=== PATIENT | male | born 1955 | race Caucasian/White ===

== ENCOUNTER 2017-10-27 10:07 | Emergency (ER) | payer OTHER ==
[~2017-10-27] VITALS: Ht 167.6 cm; Wt 93.0 kg
[~2017-10-27 10:07] MED LIST: CELEXA20 MG PO; GLUCOPHAGE XR500 MG PO; HYDROCHLOROTH12.5 M1 PO; LOVASTATIN 20 M20 MG PO; METFORMIN HCL500 MG PO; NORCO 5-325 TA1 EACH PO; TENORMIN25 MG PO
[2017-10-27] MEDS ORDERED: KEFLEX500 M1 PO (11:45)
[2017-10-27] MEDS ORDERED: NORCO 5-325 TA1 EAC1 PO (11:48)
[2017-10-27 11:54] VITALS: BP 154/90
== END 2017-10-27 11:56 | disposition home or self-care (01) ==
LOC: M.ERS 10:07
DX: S61.210A Laceration without foreign body of right index finger without damage to nail, initial encounter (principal); S61.212A Laceration without foreign body of right middle finger without damage to nail, initial encounter; S61.214A Laceration without foreign body of right ring finger without damage to nail, initial encounter; I10 Essential (primary) hypertension; E11.9 Type 2 diabetes mellitus without complications; F17.210 Nicotine dependence, cigarettes, uncomplicated; Z88.1 Allergy status to other antibiotic agents; X58.XXXA Exposure to other specified factors, initial encounter; Y93.89 Activity, other specified; Y92.89 Other specified places as the place of occurrence of the external cause; Y99.8 Other external cause status

== ENCOUNTER 2019-09-01 12:30 | Emergency (ER) | payer MEDICARE ==
[~2019-09-01] VITALS: Ht 167.6 cm; Wt 92.1 kg
[~2019-09-01 12:30] MED LIST changes: +KEFLEX500 M1 PO; +NORCO 5-325 TA1 EAC1 PO
[2019-09-01] MEDS ORDERED: FLOMAX0.4 MG PO (12:46)
[2019-09-01] MEDS ORDERED: MOBIC7.5 MG PO (14:25)
[2019-09-01 15:07] VITALS: BP 126/89
== END 2019-09-01 15:09 | disposition home or self-care (01) ==
LOC: M.ERS 12:30
DX: S40.012A Contusion of left shoulder, initial encounter (principal); S50.02XA Contusion of left elbow, initial encounter; I10 Essential (primary) hypertension; E11.9 Type 2 diabetes mellitus without complications; F32.9 Major depressive disorder, single episode, unspecified; E78.5 Hyperlipidemia, unspecified; F17.210 Nicotine dependence, cigarettes, uncomplicated; Z88.6 Allergy status to analgesic agent; W11.XXXA Fall on and from ladder, initial encounter; Y92.89 Other specified places as the place of occurrence of the external cause; Y93.89 Activity, other specified; Y99.8 Other external cause status

== ENCOUNTER 2020-06-24 22:50 | Inpatient (IN) | payer MEDICARE ==
[~2020-06-24] VITALS: Ht 188 cm; Wt 98.2 kg
[~2020-06-24 22:50] MED LIST changes: +FLOMAX0.4 MG PO; +MOBIC7.5 MG PO
[2020-06-24 22:59] VITALS: BP 96/51
[2020-06-24] MEDS ORDERED: ATENOLOL 100MG100 MG PO (23:25)
[2020-06-24] MEDS ORDERED: NORVASC 2.5 MG2.5 M1 PO (23:26)
[2020-06-24] MEDS ORDERED: LOSARTAN PO (23:27)
[2020-06-24] MEDS ORDERED: CHILDREN'S ASPI81 M1 PO (23:29)
[2020-06-24] MEDS ORDERED: MECLIZINE HCL25 M1 PO (23:29)
[2020-06-24 23:39] LABS: ABSOLUTE BASOPHILS 0.1 thou/uL (0.0-0.2); ABSOLUTE EOSINOPHILS 0.4 thou/uL (0.0-0.7); ABSOLUTE LYMPHOCYTES 3.8 thou/uL (0.8-5.3); ABSOLUTE NEUTROPHILS 7.5 thou/uL (1.6-8.1); EOSINOPHILS 3.2 %; HEMATOCRIT 44.1 % (42.0-52.0); HEMOGLOBIN 14.5 gm/dL (14.0-18.0); LYMPHOCYTES 29.7 %; MCH 29.2 pg (26.0-34.0); MCHC 32.8 g/dL (28.0-37.0); MCV 88.8 fL (80.0-100.0); MONOCYTES 7.9 %; MPV 9.3 fl. (7.2-11.1); NUCLEATED RBCS 0 /100WBC; PLATELET COUNT* 200 thou/uL (150-400); POLYS 58.2 %; RBC 4.96 mil/uL (4.50-6.00); RDW-CV 14.7 % (10.5-14.5); WBC 12.8 thou/uL (4.0-11.0)
[2020-06-24 23:44] LABS: PROTIME 11.1 Seconds (9.20-11.50)
[2020-06-24 23:55] LABS: ALBUMIN 3.7 g/dL (3.4-5.0); CREATININE 1.9 mg/dL (0.6-1.3); MAGNESIUM 1.9 mg/dL (1.8-2.4); POTASSIUM 3.2 mmol/L (3.5-5.1); TOTAL BILIRUBIN 0.2 mg/dL (<0.1-1.0); TOTAL PROTEIN 7.5 g/dL (6.4-8.2)
[2020-06-25] VITALS (21 sets, daily range): BP systolic 97–197; BP diastolic 45–120
[2020-06-25 00:49] LABS: PO2 100.3 mmHg (75.0-100.0)
[2020-06-25 00:54] LABS: PCO2 58.4 mmHg (35.0-45.0)
[2020-06-25 02:10] LABS: CSF GLUCOSE 94 mg/dl (40-70); CSF PROTEIN 79.5 mg/dl (15-45)
[2020-06-25 02:46] LABS: CSF CLARITY CLEAR; CSF COLOR COLORLESS; VOLUME 6.5 ml
[2020-06-25 02:47] LABS: CSF RBC 16 /mm3; CSF WBC 4 /mm3 (0-10)
[2020-06-25 02:51] LABS: CSF CLARITY CLEAR; CSF COLOR COLORLESS; CSF RBC 2 /mm3; CSF WBC 1 /mm3 (0-10); VOLUME 6.5 ml
[2020-06-25 03:44] LABS: PCO2 53.9 mmHg (35.0-45.0); PO2 229.6 mmHg (75.0-100.0); pH 7.147 (7.340-7.450)
[2020-06-25 09:32] LABS: BE -5.4 mmol/L (-2 to +3)
[2020-06-25 09:34] LABS: PCO2 50.6 mmHg (35.0-45.0); pH 7.257 (7.340-7.450)
[2020-06-25 09:42] LABS: URINE BILIRUBIN NEGATIVE (Negative); URINE BLOOD NEGATIVE (Negative); URINE CLARITY CLEAR; URINE COLOR YELLOW; URINE GLUCOSE-RANDOM TRACE (Negative); URINE KETONES NEGATIVE (Negative); URINE LEUKOCYTES-REFLEX NEGATIVE (Negative); URINE NITRITE-REFLEX NEGATIVE (Negative); URINE PROTEIN NEGATIVE (Negative); URINE SPECIFIC GRAVITY 1.025 (1.005-1.030); URINE UROBILINOGEN 0.2 E.U./dl (0.2-1.0)
[2020-06-25 09:50] LABS: AMP/METHAMP Negative (Negative); BARBITURATES Negative (Negative); BENZODIAZEPINES Negative (Negative); COCAINE Negative (Negative); METHADONE Negative (Negative); OPIATES Negative (Negative); PCP Negative (Negative); THC Negative (Negative)
[2020-06-26] VITALS (19 sets, daily range): BP systolic 107–159; BP diastolic 61–82
[2020-06-26 04:16] LABS: HEMATOCRIT 37.2 % (42.0-52.0); MCH 29.3 pg (26.0-34.0); MCHC 33.4 g/dL (28.0-37.0); MPV 9.2 fl. (7.2-11.1); RBC 4.23 mil/uL (4.50-6.00); WBC 9.3 thou/uL (4.0-11.0)
[2020-06-26 04:23] LABS: HEMOGLOBIN 12.4 gm/dL (14.0-18.0)
[2020-06-26 04:55] LABS: CREATININE 1.1 mg/dL (0.6-1.3); MAGNESIUM 1.9 mg/dL (1.8-2.4); POTASSIUM 4.2 mmol/L (3.5-5.1); TOTAL BILIRUBIN 0.4 mg/dL (<0.1-1.0); TOTAL PROTEIN 6.1 g/dL (6.4-8.2)
[2020-06-26 05:36] LABS: BE -0.8 mmol/L (-2 to +3); PO2 111.8 mmHg (75.0-100.0); pH 7.327 (7.340-7.450)
[2020-06-26 05:39] LABS: PCO2 50.6 mmHg (35.0-45.0)
[2020-06-26 07:07] LABS: GLYCOHEMOGLOBIN (HGB A1C) 6.2 % (4.8-5.6)
[2020-06-27] VITALS (7 sets, daily range): BP systolic 130–167; BP diastolic 54–95
[2020-06-27 05:06] LABS: HEMATOCRIT 36.5 % (42.0-52.0); HEMOGLOBIN 12.1 gm/dL (14.0-18.0); MCH 29.2 pg (26.0-34.0); MCHC 33.2 g/dL (28.0-37.0); MCV 87.9 fL (80.0-100.0); MPV 9.4 fl. (7.2-11.1); RBC 4.16 mil/uL (4.50-6.00); WBC 8.8 thou/uL (4.0-11.0)
[2020-06-27 06:04] LABS: CALCIUM 8.2 mg/dL (8.5-10.1); CREATININE 1.1 mg/dL (0.6-1.3); MAGNESIUM 1.9 mg/dL (1.8-2.4); TOTAL BILIRUBIN 0.4 mg/dL (<0.1-1.0); TOTAL PROTEIN 5.9 g/dL (6.4-8.2)
--- NOTE | 2020-06-27 11:33 | EKG ---
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 : 1955 Requested By: Rossy Allen Order Number: [id number] MD: Kannan Beyer Measurements Intervals Letcher Rate: 83 P: 46 AK: 222 QRS: -77 QRSD: 179 T: 27 QT: 492 QTc: 579 Interpretive Statements Sinus rhythm Prolonged AK interval RBBB and LAFB Baseline wander in lead(s) V5 No previous ECG available for comparison Electronically Signed On 06-27-2020 11:33:27 [employer] by Kannan Beyer [email or web address] <ELECTRONICALLY SIGNED> By: Kannan Beyer MD, FAC 06/27/20 1133 2253 2253 Kannan Beyer MD, [facility] /EPI
--- NOTE | 2020-06-27 14:25 | 2DMMODE ---
[place] [address] 2 D/M-MODE ECHOCARDIOGRAM Name: DELMERJONAH Gaby Room: [address] IN [facility]#: [id number] Admission: 06/25/20 Attend Phys: Noah Ferguson, Discharge: Date of : 53 Date of Service: 06/27/20 1425 Report #: [id number] THIS REPORT FOR: cc: LIAT SALAZAR NP, HALEY E. NP Blick, David R. MD [facility] ~ APPROVED REPORT Study performed: 06/27/2020 09:18:12 EXAM: Comprehensive 2D, Doppler, and color-flow Echocardiogram Patient Location: In-Patient Room #: 224 Status: routine BSA: 2.24 HR: 70 bpm BP: 151/88 mmHg Rhythm: NSR Other Information Study Quality: Good Indications Congestive Heart Failure 2D Dimensions IVSd: 12.37 (7-11mm) LVOT Diam: 20.53 (18-24mm) LVDd: 50.92 mm PWd: 10.44 (7-11mm) Ascending Ao: 36.24 (22-36mm) LVDs: 28.04 (25-40mm) Aortic Root: 42.56 mm Volumes Left Atrial Volume (Systole) LA ESV Index: 20.60 mL/m2 Aortic Valve AoV Peak Braulio.: 1.87 m/s AO Peak Gr.: 13.99 mmHg LVOT Max P.70 mmHg AO Mean Gr.: 7.24 mmHg LVOT Mean P.56 mmHg LVOT Max V: 1.64 m/s AO V2 VTI: 35.49 cm LVOT Mean V: 0.96 m/s BEA (VTI): 2.95 cm2 LVOT V1 VTI: 31.60 [place] [address] 2 D/M-MODE ECHOCARDIOGRAM Name: JONAH DOWELL Room: [address] IN [facility]#: [id number] Admission: 06/25/20 Attend Phys: Noah Ferguson, Discharge: Date of : 53 Date of Service: 06/27/20 1425 Report #: [id number] Mitral Valve E/A Ratio: 1.31 MV Decel. Time: 211.34 ms MV E Max Braulio.: 1.17 m/s MV PHT: 61.29 ms MVA (PHT): 3.59 cm2 TDI E/Lateral E': 10.64 E/Medial E': 9.75 Medial E' Braulio.: 0.12 m/s Lateral E' Braulio.: 0.11 m/s Pulmonary Valve PV Peak Braulio.: 1.11 m/s PV Peak Gr.: 4.89 mmHg Tricuspid Valve RAP Estimate: 5.00 mmHg TR Peak Gr.: 33.09 mmHg RVSP: 38.00 mmHg PA Pressure: 38.00 mmHg Left Ventricle The left ventricle is normal size. There is normal LV segmental wall motion. There is normal left ventricular wall thickness. Left ventricular systolic function is normal. The left ventricular ejection fraction is within the normal range. LVEF is 60-65%. Right Ventricle The right ventricle is normal size. The right ventricular systolic function is normal. Atria The left atrium size is normal. The right atrium size is normal. Aortic Valve The aortic valve is normal in structure. No aortic regurgitation is present. There is no aortic valvular stenosis. Mitral Valve The mitral valve is normal in structure. There is trace mitral valve regurgitation noted. No evidence of mitral valve stenosis. Tricuspid Valve The tricuspid valve is normal in structure. Mild tricuspid regurgitation. estimated pa pressure 40 [place] [address] 2 D/M-MODE ECHOCARDIOGRAM Name: JONAH DOWELL Room: [address] IN [facility]#: [id number] Admission: 06/25/20 Attend Phys: Noah Ferguson, Discharge: Date of : 53 Date of Service: 06/27/20 1425 Report #: [id number] Pulmonic Valve The pulmonary valve is normal in structure. There is no pulmonic valvular regurgitation. Great Vessels The aortic root is normal in size. IVC is normal in size and collapses >50% with inspiration. Pericardium There is no pericardial effusion. <Conclusion> LVEF is 60-65%. Mild tricuspid regurgitation. estimated pa pressure 40 mm Hg <ELECTRONICALLY SIGNED> By: Kannan Beyer MD, [facility] 06/27/20 1425 1425 1425 Kannan Beyer MD, FACC /INF
[2020-06-28 03:52] VITALS: BP 148/90
[2020-06-28] MEDS ORDERED: LEVOFLOXACIN500 MG PO (07:39)
[2020-06-28] MEDS ORDERED: PREDNISONE 10 M10 M1 PO (07:39)
[2020-06-28] MEDS ORDERED: IPRAT-ALBUT 0.5-3 ML INH (07:41)
[2020-06-28] MEDS ORDERED: NEBULIZER MISCELL (07:41)
[2020-06-28 08:00] VITALS: BP 171/108
[2020-06-28 12:28] VITALS: BP 171/108
[2020-06-28 12:30] VITALS: BP 152/80
== END 2020-06-28 15:19 | disposition home or self-care (01) | DRG 871 ==
LOC: M.ERS 22:50 → M.TBA-ER 06-25 00:17 → M.ICU 06-25 00:17 → M.2W 06-25 00:17 → M.ICU 06-25 00:41 → M.2W 06-26 18:10
PROVIDERS: Emergency Medicine; Internal Medicine; Psychiatry & Neurology Neurology; ADMIT Internal Medicine; ATTEND Internal Medicine
DX: A41.9 Sepsis, unspecified organism (principal); J15.6 Pneumonia due to other Gram-negative bacteria; J96.01 Acute respiratory failure with hypoxia; J96.22 Acute and chronic respiratory failure with hypercapnia; N17.9 Acute kidney failure, unspecified; F12.90 Cannabis use, unspecified, uncomplicated; I95.9 Hypotension, unspecified; F17.210 Nicotine dependence, cigarettes, uncomplicated; E78.5 Hyperlipidemia, unspecified; E11.9 Type 2 diabetes mellitus without complications; R56.9 Unspecified convulsions; G47.30 Sleep apnea, unspecified; I10 Essential (primary) hypertension; E66.9 Obesity, unspecified; F32.9 Major depressive disorder, single episode, unspecified; Z20.828 Contact with and (suspected) exposure to other viral communicable diseases; Z79.84 Long term (current) use of oral hypoglycemic drugs; Z79.82 Long term (current) use of aspirin; Z79.899 Other long term (current) drug therapy; Z88.1 Allergy status to other antibiotic agents; Z72.89 Other problems related to lifestyle; Z68.27 Body mass index [BMI] 27.0-27.9, adult; Z28.21 Immunization not carried out because of patient refusal

== ENCOUNTER → 2020-07-12 | Outpatient (CLI) | payer MEDICARE ==
[~2020-07-12] MED LIST changes: +ATENOLOL 100MG100 MG PO; +CHILDREN'S ASPI81 M1 PO; +IPRAT-ALBUT 0.5-3 ML INH; +LEVOFLOXACIN500 MG PO; +LOSARTAN PO; +MECLIZINE HCL25 M1 PO; +NEBULIZER MISCELL; +NORVASC 2.5 MG2.5 M1 PO; +PREDNISONE 10 M10 M1 PO
--- NOTE | 2020-08-02 19:45 | PF ---
[address] [address] PULMONARY FUNCTION REPORT Name: JONAH DOWELL Room: [facility]#: [id number] Admission: 07/12/20 Attend Phys: LIAT SALAZAR Discharge: Date of : 53 Report #: [id number] THIS REPORT FOR: cc: LIAT SALAZAR NP, HALEY E. NP ~ Hood Perdomo MD DATE OF SERVICE: 07/12/2020 PULMONARY FUNCTION TEST The FEV1/FVC ratio is decreased to 65% with a forced vital capacity normal at 84%, but the FEV1 is decreased to 73%. The [id number] is decreased to 44%. All of these are post-bronchodilator values as the patient uses nebulized bronchodilators just before coming to the pulmonary function lab. The total lung capacity is markedly decreased to 55% with a residual volume calculated to be only 7% of the reference range. The patient's actual residual volume may be higher than the calculated value here. Regardless, the patient appears to have severe restriction. The DLCO as adjusted for hemoglobin is decreased to 61%. The patient's post-bronchodilator FEV1 is 2.15 liters. IMPRESSION: 1. There is moderate obstruction present. The patient used and nebulized bronchodilators just before this test and therefore, reversibility could not be tested. 2. There is severe restriction. The total lung capacity is decreased to 55% only. 3. DLCO as adjusted for hemoglobin is decreased to 61%. <ELECTRONICALLY SIGNED> By: Hood Perdomo MD 08/02/201944 15 Aozzie Perdomo MD /nt
== END ==
LOC: M.PUL 10:48
PROVIDERS: ATTEND Nurse Practitioner Family
DX: R05 Cough (principal); R06.00 Dyspnea, unspecified

== ENCOUNTER 2021-05-03 17:02 | Emergency (ER) | payer OTHER ==
[~2021-05-03] VITALS: Ht 167.6 cm; Wt 89.4 kg
[2021-05-03] MEDS ORDERED: KEFLEX250 MG PO (18:45)
[2021-05-03 19:05] VITALS: BP 134/82
== END 2021-05-03 19:05 | disposition home or self-care (01) ==
LOC: M.ERS 17:02
DX: S61.511A Laceration without foreign body of right wrist, initial encounter (principal); I10 Essential (primary) hypertension; E78.5 Hyperlipidemia, unspecified; F32.9 Major depressive disorder, single episode, unspecified; E11.9 Type 2 diabetes mellitus without complications; W20.8XXA Other cause of strike by thrown, projected or falling object, initial encounter; Y93.89 Activity, other specified; Y92.89 Other specified places as the place of occurrence of the external cause; Y99.8 Other external cause status